=== PATIENT | female | born 1995 | race Caucasian/White ===

== ENCOUNTER 2025-02-23 12:06 | Emergency (ER) | payer SELFPAY ==
[2025-02-23 12:18] VITALS: BP 100/71; PULSE 101; RESP 16; TEMP 36.7; O2SAT 98; BMI 28.3
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
[2025-02-23] MEDS: KETOROLAC INJ 60 MG/2 ML VIAL 30 MG IM (12:25)
[2025-02-23 13:23] LABS: Collection Type, Urine Clean Catch
[2025-02-23 13:34] LABS: Bilirubin,Urine Negative (Negative); Blood,Urine Negative (Negative); Clarity,Urine Clear (Clear/Hazy); Color,Urine Lt-Yellow (Lt Yel-Yel); Culture Indicated,Urine Not Indicated; Glucose, Urine Negative (Negative); Ketones,Urine Negative (Negative); Leukocyte Esterase,Urine Negative (Negative); Nitrite,Urine Negative (Negative); PH,Urine 7.0 (5.0-7.0); Protein,Urine Negative (Neg - Trace); RBC,Urine 6 /hpf (0-3); Specific Gravity,Urine 1.020 (1.001-1.035); Squamous Epithelial Cell,Urine 3 /hpf (0-5); Urobilinogen,Urine Negative mg/dL (0.0-1.0); WBC,Urine 1 /hpf (0-5)
[2025-02-23 13:56] LABS: Amphetamine/Methamp Scrn,U Negative (Negative); Barbiturate Screen,Urine Negative (Negative); Benzodiazepines Screen,Urine Negative (Negative); Benzoylecgonine Screen, Ur Negative (Negative); Fentanyl Screen,Urine Negative (Negative); HCG Qualitative,Urine Negative; Opiate Screen,Urine Negative (Negative); THC Screen,Urine Positive (Negative)
== END 2025-02-23 14:14 | disposition home or self-care (01) ==
PROVIDERS: Registered Nurse General Practice; Emergency Provider Emergency Medicine
DX: S16.1XXA Strain of muscle, fascia and tendon at neck level, initial encounter (principal); S29.9XXA Unspecified injury of thorax, initial encounter; V89.9XXA Person injured in unspecified vehicle accident, initial encounter
CPT/HCPCS: 72040; 72070; 72072; 80307; 81001; 81025; 96372; 99283; J1885